=== PATIENT | female | born 1990 | race Caucasian/White ===

== ENCOUNTER 2018-01-29 17:31 | Emergency (ER) | payer OTHER ==
[~2018-01-29] VITALS: Ht 124.5 cm; Wt 65.8 kg
[~2018-01-29 17:31] MED LIST: BENADRYL ALLE12.5 MG
== END 2018-01-29 20:15 | disposition home or self-care (01) ==
LOC: ER 17:31
DX: B36.0 Pityriasis versicolor (principal)